=== PATIENT | female | born 1995 | race Hispanic/Latino ===

== ENCOUNTER 2020-09-10 09:49 | Emergency (ER) | payer OTHER, SELFPAY ==
[2020-09-10 10:08] VITALS: BP 118/86; PULSE 80; RESP 14; TEMP 37.2; O2SAT 100; BMI 27.4
--- NOTE | 2020-09-10 10:19 | PC.NURSE ---
Pt . pt started with light pink discharge last night and light brown discharge today with right flank pain. Pt denies urinary sx.
--- NOTE | 2020-09-10 10:33 | DI.US.S_ITS ---
PROCEDURE: US OB <= 14 WEEKS FETUS INDICATIONS: BLEEDING OUTSIDE/PRIOR DATING DATA: Last menstrual period (LMP): 08/07/2020 . LMP-based estimated date of delivery (PERICO): 05/10/2021 . First dating scan (date and location): , 09/10/2020 . Estimated date of delivery (PERICO) from first dating scan: 05/10/2021 . TECHNIQUE: Real-time scanning was performed of the fetuses and maternal pelvic organs, with image documentation. Endovaginal scanning: Performed for better visualization of the fetuses and maternal adnexal structures. COMPARISON: None. FINDINGS: General: There is either a septate or bicornuate uterus present. Within the right cornu, there are 2 separate gestational sacs with trophoblastic reaction. pole and heart rates are not currently visualized. Suggestion of yolk sacs are noted each gestational sac. No evidence of perigestational bleed. Embryo A: Mean sac diameter measures 7 mm corresponds with a 5 day 5 week 3 day gestation. Embryo B: Mean sac diameter measures 5 mm corresponding with a 5 week 2 day gestation. Measurement variability in dating: +/- 4 weeks by LMP, +/- 7 days by mean sac diameter (use before 6 weeks gestation if crown-rump length unable to be measured), +/- 5 days by crown-rump length (up to 8 weeks 6 days gestation), +/- 7 days by crown-rump length (up to 13 weeks 6 days gestation). Maternal organs: Small amount of free fluid in the pelvis. Neither ovary visualized. No adnexal mass. IMPRESSION: Early twin gestation. Mean sac diameter corresponds with a 5 week 3 day and 5 week 2 day gestation. pole or cardiac motion not visualized. Consider short-term interval follow-up to assess appropriate development. No perigestational bleed noted. Bicornuate or septate uterus. Dictated by: Migel Buchanan M.D. on 09/10/2020 at 11:56 Approved by: Migel Buchanan M.D. on 09/10/2020 at 12:07
[2020-09-10 10:56] LABS: Add Manual Diff / Slide Review NO; Basophils Absolute Auto 0 /uL (0-100); Basophils Percent Auto 0.3 % (0-2); Eosinophils Absolute Auto 200 /uL (0-450); Eosinophils Percent Auto 2.5 % (2-4); Hemoglobin 12.9 g/dL (12.0-16.0); Lymphocytes Absolute Auto 2500 /uL (1100-4500); Lymphocytes Percent Auto 37.9 % (25-40); Mean Corpuscular HGB Conc 33.9 % (30-36); Mean Corpuscular Volume 85.7 fL (80-100); Monocytes Absolute Auto 400 /uL (0-900); Monocytes Percent Auto 6.7 % (3-14); Neutrophils Absolute Auto 3400 /uL (1500-7000); Neutrophils Percent Auto 52.6 % (50-75); Platelet Count 229 X10^3/uL (150-400); Red Blood Cell Count 4.43 X10^6/uL (4.0-5.2); Red Cell Distribution Width 14.2 % (11.6-14.8); White Blood Cell Count 6.5 X10^3/uL (4.5-11.0)
[2020-09-10 11:06] LABS: Alanine Aminotransferase 23 IU/L (<35); Albumin 4.1 g/dL (3.5-5.0); Albumin Globulin Ratio 1.5 (1.0-2.8); Alkaline Phosphatase 44 U/L (38-126); Aspartate Aminotransferase 24 IU/L (14-36); Bilirubin Total 0.3 mg/dL (0.2-1.3); Blood Urea Nitrogen 9 mg/dL (7-17); Calcium 9.3 mg/dL (8.4-10.2); Carbon Dioxide 22 mmol/L (22-32); Chloride 108 mmol/L (98-107); Estimated Glomerular Filt Rate > 60.0 mL/min (>60); Globulin 2.8 g/dL (1.7-4.1); Glucose 79 mg/dL (70-100); HEMOLYSIS < 15 (0-50); Potassium 3.8 mmol/L (3.4-5.1); Sodium 137 mmol/L (137-145); Total Protein 6.9 g/dL (6.3-8.2)
[2020-09-10 11:23] LABS: HCG Quantitative /Beta subunit 6488.4 mIU/mL
--- NOTE | 2020-09-10 12:00 | ED.FEMALEGU ---
HPI - Female Genitourinary General Chief complaint: Abdominal Pain Stated complaint: , back and pelvic pain, spotting Time Seen by Provider: 09/10/20 10:33 Source: patient Mode of arrival: Ambulatory Limitations: no limitations History of Present Illness HPI Narrative: Patient is a 25-year-old female who presents with right-sided flank pain and some light pink when wiping. She is currently with her 1st and wanted with her . She denies any real abdominal pain nausea or vomiting. No fevers or chills. She denies any painful or frequent urination. Last menstrual period was 08/07/2020 Related Data Allergies Allergy/AdvReac Type Severity Reaction Status Date / Time No Known Drug Allergies Allergy Verified 09/10/20 10:13 Review of Systems Review of Systems ROS Unobtainable: All systems reviewed & are unremarkable except as noted in HPI and below Constitutional Constitutional: Denies chills, Denies fever(s), Denies lethargy and Denies weakness ENT Ears, Nose, Mouth, and Throat: Denies change in voice, Denies neck pain and Denies sore throat Cardiovascular Cardiovascular: Denies chest pain, Denies syncope, Denies irregular heart rhythm, Denies lightheadedness, Denies palpitations, Denies dyspnea, Denies dyspnea on exertion and Denies orthopnea Respiratory Respiratory: Denies cough, Denies dyspnea, Denies dyspnea on exertion and Denies wheezing Gastrointestinal Gastrointestinal: Reports as per HPI, Reports abdominal pain, Denies nausea and Denies vomiting Genitourinary Genitourinary: Reports as per HPI, Denies urinary hesitancy and Denies urinary urgency Genitourinary: Reports as per HPI, Denies urinary hesitancy and Denies urinary urgency Musculoskeletal Musculoskeletal: Denies myalgias and Denies neck pain Integumentary/Breasts Skin/Breast: Denies pruritus, Denies erythema, Denies rash and Denies wounds Neurologic Neurologic: Denies syncope and Denies weakness Endocrine Endocrine: Denies palpitations Allergic/Immunologic Allergic/Immunologic: Denies wheezing Patient History alcohol intake frequency: holidays/special occasions only Substance Use Type: does not use Exam Initial Vital Signs Initial Vital Signs: Vital Signs Temperature 98.9 F 09/10/20 10:08 Pulse Rate 80 09/10/20 10:08 Respiratory Rate 14 09/10/20 10:08 Blood Pressure 118/86 09/10/20 10:08 Pulse Oximetry 100 09/10/20 10:08 GENERAL: Well-appearing, well-nourished and in no acute distress. HEENT: Head atraumatic,EOMI, pupils reactive, face symmetric, moist mucous membranes CARDIOVASCULAR: Regular rate and rhythm without murmurs, rubs or gallops. RESPIRATORY: Breath sounds equal bilaterally, no wheezes rales or rhonchi. ABDOMEN: Soft, no right lower quadrant pain, negative Guthrie sign no guarding or rebound : No CVA tenderness EXTREMITIES: Normal range of motion, no clubbing or edema. Neurovascularly intact NEUROLOGICAL: Alert and oriented x4.Normal gait and speech. SKIN: Warm, dry, no laceration, no petechiae, no rashes or lesions. Course Orders Ordered: ED Orders 09/10/20 10:33 US OB <= 14 weeks fetus Stat 09/10/20 10:53 ABO RH Type Stat Complete Blood Count AUTO DIFF Stat Comprehensive Metabolic Panel Stat HCG Quantitative /Beta subunit Stat Vital Signs Vital signs: Vital Signs - 8 hr 09/10/20 13:46 Pulse Rate 81 Respiratory Rate 16 Blood Pressure 120/80 Pulse Oximetry 99 MDM - Female Genitourinary Lab Data Attestation: I reviewed the patient's lab results. Result diagrams: 09/10/20 10:53 09/10/20 10:53 Labs: Lab Results 09/10/20 09/10/20 09/10/20 Range/Units 10:53 10:53 10:53 WBC 6.5 (4.5-11.0) X10^3/uL RBC 4.43 (4.0-5.2) X10^6/uL Hgb 12.9 (12.0-16.0) g/dL Hct 38.0 (36-46) % MCV 85.7 (80-100) fL MCH 29.0 (26-34) PG MCHC 33.9 (30-36) % RDW 14.2 (11.6-14.8) % Plt Count 229 (150-400) X10^3/uL Neut % (Auto) 52.6 (50-75) % Lymph % (Auto) 37.9 (25-40) % [place] % (Auto) 6.7 (3-14) % Eos % (Auto) 2.5 (2-4) % Baso % (Auto) 0.3 (0-2) % Neut # (Auto) 3400 (2051-9758) /uL Lymph # (Auto) 2500 (4146-3676) /uL [place] # (Auto) 400 (0-900) /uL Eos # (Auto) 200 (0-450) /uL Baso # (Auto) 0 (0-100) /uL Sodium 137 (137-145) mmol/L Potassium 3.8 (3.4-5.1) mmol/L Chloride 108 H (98-107) mmol/L Carbon Dioxide 22 (22-32) mmol/L BUN 9 (7-17) mg/dL Creatinine 0.53 (0.52-1.04) mg/dL Estimated GFR > 60.0 (>60) mL/min BUN/Creatinine Ratio 17.0 (6-22) Glucose 79 (70-100) mg/dL Calcium 9.3 (8.4-10.2) mg/dL Total Bilirubin 0.3 (0.2-1.3) mg/dL AST 24 (14-36) IU/L ALT 23 (<35) IU/L Alkaline Phosphatase 44 (38-126) U/L Total Protein 6.9 (6.3-8.2) g/dL Albumin 4.1 (3.5-5.0) g/dL Globulin 2.8 (1.7-4.1) g/dL Albumin/Globulin Ratio 1.5 (1.0-2.8) HCG, Quant 6488.4 mIU/mL Blood Type O Positive Point of Care Testing Test Results Positive Urine Dip Bedside Urine Glucose Negative Bedside Urine Bilirubin - Negative Bedside Urine Ketone - Negative Urine Specific [place] 1.015 Bedside Urine Occult Blood - Negative Bedside Urine pH 6.0 Bedside Urine Protein - Negative Bedside Urine Urobilinogen - Negative Bedside Urine Nitrite - Negative Bedside Urine Leukocytes - Negative Esterase Imaging Data US - OB: Radiologist's Impression: PROCEDURE: US OB <= 14 WEEKS FETUS INDICATIONS: BLEEDING OUTSIDE/PRIOR DATING DATA: Last menstrual period (LMP): 08/07/2020 . LMP-based estimated date of delivery (PERICO): 05/10/2021 . First dating scan (date and location): , 09/10/2020 . Estimated date of delivery (PERICO) from first dating scan: 05/10/2021 . TECHNIQUE: Real-time scanning was performed of the fetuses and maternal pelvic organs, with image documentation. Endovaginal scanning: Performed for better visualization of the fetuses and maternal adnexal structures. COMPARISON: None. FINDINGS: General: There is either a septate or bicornuate uterus present. Within the right cornu, there are 2 separate gestational sacs with trophoblastic reaction. pole and heart rates are not currently visualized. Suggestion of yolk sacs are noted each gestational sac. No evidence of perigestational bleed. Embryo A: Mean sac diameter measures 7 mm corresponds with a 5 day 5 week 3 day gestation. Embryo B: Mean sac diameter measures 5 mm corresponding with a 5 week 2 day gestation. Measurement variability in dating: +/- 4 weeks by LMP, +/- 7 days by mean sac diameter (use before 6 weeks gestation if crown-rump length unable to be measured), +/- 5 days by crown-rump length (up to 8 weeks 6 days gestation), +/- 7 days by crown-rump length (up to 13 weeks 6 days gestation). Maternal organs: Small amount of free fluid in the pelvis. Neither ovary visualized. No adnexal mass. IMPRESSION: Early twin gestation. Mean sac diameter corresponds with a 5 week 3 day and 5 week 2 day gestation. pole or cardiac motion not visualized. Consider short-term interval follow-up to assess appropriate development. No perigestational bleed noted. Bicornuate or septate uterus. Dictated by: Migel Buchanan M.D. on 09/10/2020 at 11:56 MDM Narrative Medical decision making narrative: Patient only had 1 episode of brown spotting and then some light pink when she urinated. She has had no further episodes of bleeding or hematuria. Blood work is overall reassuring elevated hCG. 1330 Dr. Kaur updated patient's symptoms test results and will follow-up as outpatient Discharge Plan Departure Patient Disposition: Home Clinical Impression: Twin gestation in first trimester Instructions: DI for -- Discomforts and Remedies Activity Restrictions/Additional Instructions: *You have been diagnosed with twin congratulations *What to do: You were found to have twins. I have called and spoken with custom marine canvas fabricator they will reach out to you for follow-up *Continue to take medications as directed vitamin once daily *Follow up with your primary care provider in 2-3 days It does [facility] *Return to ER if you should have increasing pain vaginal bleeding or any new, worsening or concerning symptoms Referrals: Mckinney,MD Pamela [Physician] - Juliane Garner MD [Physician] - Francheska Kaur MD [Physician] -
[2020-09-10 13:46] VITALS: BP 120/80; PULSE 81; RESP 16; O2SAT 99
== END 2020-09-10 13:46 | disposition home or self-care (01) ==
PROVIDERS: Emergency Provider Emergency Medicine
DX: O20.9 Hemorrhage in early pregnancy, unspecified (principal); Z3A.01 Less than 8 weeks gestation of pregnancy
CPT/HCPCS: 36415; 76801; 76802; 76817; 80053; 81003; 81025; 84702; 85025; 86900; 86901; 99284

== ENCOUNTER → 2020-09-16 12:52 | Outpatient (CLI) | payer OTHER, SELFPAY ==
[2020-09-16 14:21] LABS: HCG Quantitative /Beta subunit 30889 mIU/mL
== END ==
PROVIDERS: Referring Provider Obstetrics & Gynecology; Visit Provider Obstetrics & Gynecology
DX: O26.859 Spotting complicating pregnancy, unspecified trimester (principal)
CPT/HCPCS: 36415; 84702

== ENCOUNTER 2020-09-18 13:47 | Emergency (ER) | payer OTHER, SELFPAY ==
[2020-09-18] VITALS (10 sets, daily range): BP systolic 95–116; BP diastolic 57–72; PULSE 68–77; RESP 12–14; TEMP 36.1; O2SAT 100; BMI 27.4
--- NOTE | 2020-09-18 14:01 | DI.US.S_ITS ---
PROCEDURE: OB <= 14 WEEKS FETUS INDICATIONS: bleeding 6 wks twins OUTSIDE/PRIOR DATING DATA: Last menstrual period (LMP): 08/07/20 . LMP-based estimated date of delivery (PERICO): 05/10/21 . First dating scan (date and location): 09/10/20 Estimated date of delivery (PERICO) from first dating scan: 05/10/21 . TECHNIQUE: Real-time scanning was performed of the fetuses and maternal pelvic organs, with image documentation. Endovaginal scanning: Performed for better visualization of the fetuses and maternal adnexal structures. COMPARISON: [facility], OB <= 14 WEEKS FETUS, 09/10/2020, 11:07. FINDINGS: General: An intrauterine diamniotic mono a chorionic twin is present, as evidenced by single placental site and intervening membrane thickness of greater than 2 mm at this early gestational age. Embryo A: Appears viable, 4 mm crown-rump length Heart rate: 109 Embryo B: Appears viable., 4 mm crown-rump length also. Heart rate: 108 Measurement variability in dating: +/- 4 weeks by LMP, +/- 7 days by mean sac diameter (use before 6 weeks gestation if crown-rump length unable to be measured), +/- 5 days by crown-rump length (up to 8 weeks 6 days gestation), +/- 7 days by crown-rump length (up to 13 weeks 6 days gestation). Maternal organs: Ovaries normal considering gestational status.. IMPRESSION: Twin intrauterine gestation, early 1st trimester, monochorionic diamniotic gestation. Current estimated gestational age is 6 weeks 4 days, based on crown-rump length, with delivery date projected for both gestations to be centered on 05/10/21, +/-5 days. Dictated by: Sonu Garcia M.D. on 09/18/2020 at 15:44 Approved by: Sonu Garcia M.D. on 09/18/2020 at 15:51
[2020-09-18 14:22] LABS: Add Manual Diff / Slide Review NO; Basophils Absolute Auto 0 /uL (0-100); Basophils Percent Auto 0.4 % (0-2); Eosinophils Absolute Auto 100 /uL (0-450); Eosinophils Percent Auto 1.6 % (2-4); Hematocrit 39.8 % (36-46); Hemoglobin 13.2 g/dL (12.0-16.0); Lymphocytes Absolute Auto 2100 /uL (1100-4500); Lymphocytes Percent Auto 31.6 % (25-40); Mean Corpuscular HGB Conc 33.2 % (30-36); Mean Corpuscular Hemoglobin 29.1 PG (26-34); Mean Corpuscular Volume 87.4 fL (80-100); Monocytes Absolute Auto 400 /uL (0-900); Monocytes Percent Auto 6.7 % (3-14); Neutrophils Absolute Auto 4000 /uL (1500-7000); Neutrophils Percent Auto 59.7 % (50-75); Platelet Count 242 X10^3/uL (150-400); Red Blood Cell Count 4.56 X10^6/uL (4.0-5.2); Red Cell Distribution Width 14.5 % (11.6-14.8); White Blood Cell Count 6.7 X10^3/uL (4.5-11.0)
[2020-09-18 15:22] LABS: HCG Quantitative /Beta subunit 48399 mIU/mL
--- NOTE | 2020-09-18 18:31 | ED.PREGNANCY ---
HPI - General Chief complaint: OB/Uterine Contractions Stated complaint: 6 weeks preg, bleeding Time Seen by Provider: 09/18/20 18:06 Source: patient Mode of arrival: Ambulatory History of Present Illness HPI Narrative: Patient is here for vaginal bleeding. Six weeks . Seen here September 10 for the same. Ultrasound and blood work done at that time. Gave referral to local OBGYN. Has appointment in 2 weeks for 1st appointment. Is on vitamins. Bleeding started again today heavier than last visit. No dizziness no syncope no palpitations. No pelvic pain. No vaginal pain. No back pain. Patient denies any medical problems. Blood work and ultrasound today reassuring as it was last visit. Please see report below. Patient set to see Dr. Kaur Related Data Allergies Allergy/AdvReac Type Severity Reaction Status Date / Time No Known Drug Allergies Allergy Verified 09/18/20 13:58 Review of Systems Review of Systems Narrative: GENERAL: Denies chills, fatigue, malaise, fever, sweats. HEENT: Denies sinus pain, ear pain, sore throat RESPIRATORY: Denies dyspnea, cough CARDIOVASCULAR: Denies chest pain, palpitations GASTROINTESTINAL: Denies nausea, vomiting, abdominal pain : Denies dysuria, frequency, hematuria, complains of vaginal bleeding MUSCULOSKELETAL: denies muscle or bony pain SKIN: Denies rash, skin lesions NEUROLOGIC: Denies weakness, numbness ROS Unobtainable: All systems reviewed & are unremarkable except as noted in HPI and below Exam Narrative Exam Narrative: GENERAL: in no distress, not toxic not dyspneic HEAD: Normocephalic. EYES: Pupils equal round No scleral icterus. No injection no discharge ENT: Mucous membranes moist. NECK: Trachea midline. CARDIOVASCULAR: Regular rate and rhythm without murmurs RESPIRATORY: Clear to auscultation. Breath sounds equal bilaterally. No wheezes, rales, or rhonchi. GASTROINTESTINAL: Abdomen soft, non-tender, bowel sounds present, no peritoneal signs. : At this time defer on pelvic exam. Patient has had 2 ultrasounds in the past 2 weeks. Vital signs stable as well as laboratory studies. Denies any pelvic pain. BACK: No flank tenderness. NEURO: AOx4. SKIN: Warm and dry PSYCH: Not anxious, is cooperative Initial Vital Signs Initial Vital Signs: Vital Signs Temperature 97.0 F L 09/18/20 13:55 Pulse Rate 77 09/18/20 13:55 Respiratory Rate 12 09/18/20 13:55 Blood Pressure 107/71 09/18/20 13:55 Pulse Oximetry 100 09/18/20 13:55 Course Course Course Narrative: No new issues during course of stay. Orders Ordered: ED Orders 09/18/20 14:01 US OB <= 14 weeks fetus Stat 09/18/20 14:13 ABO RH Type Stat Complete Blood Count AUTO DIFF Stat HCG Quantitative /Beta subunit Stat Reevaluation(s) Reevaluation #1: Reviewed results with patient and . Informed them discussion with Dr. De Souza and he will have office contact patient tomorrow. They agree with treatment plan and return precautions Time: 19:34 Consultations Consultation #1: Spoke with OBGYN on-call Dr. De Souza, he will inform Dr. Kaur regarding visit here and last week as well and will have office contact patient tomorrow for recheck. Time: 18:45 Vital Signs Vital signs: Vital Signs - 8 hr 09/18/20 18:00 09/18/20 19:43 Pulse Rate 73 70 Respiratory Rate 14 Blood Pressure 116/60 Pulse Oximetry 100 100 MDM - OB/Uterine Contractions Differential Diagnosis Differential diagnosis: Likely other (Threatened miscarriage) Lab Data Result diagrams: 09/18/20 14:13 Labs: Lab Results 09/18/20 09/18/20 09/18/20 Range/Units 14:13 14:13 14:13 WBC 6.7 (4.5-11.0) X10^3/uL RBC 4.56 (4.0-5.2) X10^6/uL Hgb 13.2 (12.0-16.0) g/dL Hct 39.8 (36-46) % MCV 87.4 (80-100) fL MCH 29.1 (26-34) PG MCHC 33.2 (30-36) % RDW 14.5 (11.6-14.8) % Plt Count 242 (150-400) X10^3/uL Neut % (Auto) 59.7 (50-75) % Lymph % (Auto) 31.6 (25-40) % [place] % (Auto) 6.7 (3-14) % Eos % (Auto) 1.6 L (2-4) % Baso % (Auto) 0.4 (0-2) % Neut # (Auto) 4000 (7868-2380) /uL Lymph # (Auto) 2100 (4098-6251) /uL [place] # (Auto) 400 (0-900) /uL Eos # (Auto) 100 (0-450) /uL Baso # (Auto) 0 (0-100) /uL HCG, Quant 86020 mIU/mL Blood Type O Positive Urine Dip Bedside Urine Glucose Negative Bedside Urine Bilirubin - Negative Bedside Urine Ketone - Negative Urine Specific [place] 1.015 Bedside Urine Occult Blood +++ Bedside Urine pH 6.0 Bedside Urine Protein - Negative Bedside Urine Urobilinogen - Negative Bedside Urine Nitrite - Negative Bedside Urine Leukocytes - Negative Esterase Imaging Data US - OB: Radiologist's Impression: [address] [id number] ReportSigned Patient: Patrick Strauss DMR#: [id number]: [id number]:[id number]/Sex: 25 / FDate of Service: 09/18/20Loc: EDAccession Number: [id number] Procedure: US OB <= 14 weeks fetus Ordering Provider: Bettye Geiger D.O. PROCEDURE: US OB <= 14 WEEKS FETUS INDICATIONS: bleeding 6 wks twins OUTSIDE/PRIOR DATING DATA: Last menstrual period (LMP): 08/07/20 . LMP-based estimated date of delivery (PERICO): 05/10/21 . First dating scan (date and location): 09/10/20 Estimated date of delivery (PERICO) from first dating scan: 05/10/21 . TECHNIQUE: Real-time scanning was performed of the fetuses and maternal pelvic organs, with image documentation. Endovaginal scanning: Performed for better visualization of the fetuses and maternal adnexal structures. COMPARISON: [facility], OB <= 14 WEEKS FETUS, 09/10/2020, 11:07. FINDINGS: General: An intrauterine diamniotic mono a chorionic twin is present, as evidenced by single placental site and intervening membrane thickness of greater than 2 mm at this early gestational age. Embryo A: Appears viable, 4 mm crown-rump length Heart rate: 109 Embryo B: Appears viable., 4 mm crown-rump length also. Heart rate: 108 Measurement variability in dating: +/- 4 weeks by LMP, +/- 7 days by mean sac diameter (use before 6 weeks gestation if crown-rump length unable to be measured), +/- 5 days by crown-rump length (up to 8 weeks 6 days gestation), +/- 7 days by crown-rump length (up to 13 weeks 6 days gestation). Maternal organs: Ovaries normal considering gestational status.. IMPRESSION: Twin intrauterine gestation, early 1st trimester, monochorionic diamniotic gestation. Current estimated gestational age is 6 weeks 4 days, based on crown-rump length, with delivery date projected for both gestations to be centered on 05/10/21, +/-5 days. Dictated by: Sonu Garcia M.D. on 09/18/2020 at 15:44 Approved by: Sonu Garcia M.D. on 09/18/2020 at 15:51 MDM Narrative Medical decision making narrative: Appropriate for discharge home. Exam as well as laboratory studies and imaging reassuring. Patient early in . Patient does have follow-up with OBGYN. Quantitative hCG is rising. Heartbeat noted on ultrasound as well. Discharge Plan Departure Patient Disposition: Home Clinical Impression: Miscarriage, threatened, early Instructions: DI for Threatened Activity Restrictions/Additional Instructions: Contact Dr. Kaur office tomorrow regarding your recent visits. Call the office tomorrow. They are expecting your call. Return if worse or if any questions or concerns or increased bleeding or any dizziness or feel like your going to pass out. Continue home medications. No sexual activity. The patient her to get plenty of rest. Referrals: Francheska Kaur MD [Physician] -
== END 2020-09-18 19:45 | disposition home or self-care (01) ==
PROVIDERS: Emergency Medicine; Emergency Provider Emergency Medicine
DX: O20.0 Threatened abortion (principal); Z3A.01 Less than 8 weeks gestation of pregnancy
CPT/HCPCS: 36415; 76801; 76802; 76817; 81003; 84702; 85025; 86900; 86901; 99283; 99284

== ENCOUNTER → 2020-09-25 12:07 | Outpatient (CLI) | payer OTHER, SELFPAY ==
--- NOTE | 2020-09-25 12:09 | DI.US.S_ITS ---
PROCEDURE: OB <= 14 WEEKS FETUS INDICATIONS: FOLLOW-UP BLEEDING OUTSIDE/PRIOR DATING DATA: Last menstrual period (LMP): 08/07/20. LMP-based estimated date of delivery (PERICO): . First dating scan (date and location): 09/10/20 . Estimated date of delivery (PERICO) from first dating scan: 05/10/20 . TECHNIQUE: Real-time scanning was performed of the fetuses and maternal pelvic organs, with image documentation. COMPARISON: [facility] OB <= 14 WEEKS FETUS, 09/18/2020, 14:22. [facility], OB <= 14 WEEKS FETUS, 09/10/2020, 11:07. FINDINGS: General: An intrauterine diamniotic dichorionic twin is present, as evidenced by separate placental sites and intervening membrane thickness of greater than 2 mm at this early gestational age. Embryo A: 7 mm crown-rump length, which correlates with a gestational age of 6 weeks 4 days. Heart rate: 117 Embryo B: 7 mm crown-rump length with a gestational age also of 6 weeks 4 days. Heart rate: Not seen. Measurement variability in dating: +/- 4 weeks by LMP, +/- 7 days by mean sac diameter (use before 6 weeks gestation if crown-rump length unable to be measured), +/- 5 days by crown-rump length (up to 8 weeks 6 days gestation), +/- 7 days by crown-rump length (up to 13 weeks 6 days gestation). Maternal organs: Ovaries normal considering gestational status. The uterus appears bicornuate with the gestational sacs in the right horn. IMPRESSION: Fetus a, gestational sac inferior and medial within the right cornua. cardiac activity is observed. Fetus B, superior and lateral positioning in the right cornua, with no cardiac activity seen currently. cardiac activity was seen 1 week ago. The current imaging suffices for establishing diagnosis of demise of fetus B. However, additional follow-up ultrasound in 5-7 days could be obtained for further confirmation.. Dictated by: Sonu Garcia M.D. on 09/25/2020 at 16:36 Approved by: Sonu Garcia M.D. on 09/25/2020 at 16:45
== END ==
PROVIDERS: PCP Family Medicine; Referring Provider Obstetrics & Gynecology; Visit Provider Obstetrics & Gynecology
DX: O20.9 Hemorrhage in early pregnancy, unspecified (principal); O30.041 Twin pregnancy, dichorionic/diamniotic, first trimester; Z3A.01 Less than 8 weeks gestation of pregnancy
CPT/HCPCS: 76801; 76817

== ENCOUNTER → 2020-10-01 16:10 | Outpatient (CLI) | payer OTHER, SELFPAY ==
[2020-10-01 16:31] LABS: Add Manual Diff / Slide Review NO; Basophils Absolute Auto 0 /uL (0-100); Basophils Percent Auto 0.3 % (0-2); Eosinophils Absolute Auto 100 /uL (0-450); Eosinophils Percent Auto 1.2 % (2-4); Hematocrit 37.8 % (36-46); Hemoglobin 12.8 g/dL (12.0-16.0); Lymphocytes Absolute Auto 2000 /uL (1100-4500); Mean Corpuscular HGB Conc 33.8 % (30-36); Mean Corpuscular Volume 85.8 fL (80-100); Monocytes Absolute Auto 400 /uL (0-900); Neutrophils Absolute Auto 4800 /uL (1500-7000); Neutrophils Percent Auto 65.5 % (50-75); Platelet Count 258 X10^3/uL (150-400); Red Blood Cell Count 4.41 X10^6/uL (4.0-5.2); Red Cell Distribution Width 14.5 % (11.6-14.8); White Blood Cell Count 7.3 X10^3/uL (4.5-11.0)
[2020-10-02 04:54] LABS: Varicella IgG Antibody 450 index (Immune >165)
[2020-10-02 06:08] LABS: RPR Screen Non Reactive (Non Reactive)
[2020-10-02 16:21] LABS: Hepatitis B Surface Antigen NEGATIVE s/c (NEGATIVE); Rubella Antibody IgG 22.1 IU/mL (>15)
[2020-10-02 16:45] LABS: HIV 1 & 2 Ab/Ag 4th Gen Combo NEGATIVE (NEGATIVE); Hep C Virus Ab w/Reflex Quant NEGATIVE s/c (NEGATIVE)
== END ==
PROVIDERS: PCP Family Medicine; Referring Provider Obstetrics & Gynecology; Visit Provider Obstetrics & Gynecology
DX: Z34.01 Encounter for supervision of normal first pregnancy, first trimester (principal)
CPT/HCPCS: 36415; 80055; 86787; 86803; 86850; 86900; 86901; 87389

== ENCOUNTER → 2020-10-18 12:31 | Outpatient (CLI) | payer OTHER, SELFPAY ==
[2020-10-18 13:44] LABS: Appearance Urine UA CLEAR; Bilirubin Urine UA NEGATIVE (NEGATIVE); Color Urine UA YELLOW; Glucose Urine UA NEGATIVE (Negative); Ketones Urine UA NEGATIVE (NEGATIVE); Leukocyte Esterase Urine UA 1+ (NEGATIVE); Nitrite Urine UA NEGATIVE (Negative); Occult Blood Urine UA NEGATIVE (Negative); Protein Urine UA NEGATIVE (Negative); Specific Gravity Urine UA <=1.005 (1.000-1.035); Urobilinogen Urine UA 0.2 E.U./dL (0.2)
[2020-10-18 14:06] LABS: RBC Urine None Seen (0-5/HPF)
[2020-10-18 14:20] LABS: Bacteria Urine Moderate (10-30); Squamous Epithelial Cell Urine 5-10 /HPF (0-5/HPF); WBC Urine 5-10/HPF (0-5/HPF)
== END ==
PROVIDERS: PCP Family Medicine; Referring Provider Obstetrics & Gynecology; Visit Provider Obstetrics & Gynecology
DX: Z34.01 Encounter for supervision of normal first pregnancy, first trimester (principal); Z36.0 Encounter for antenatal screening for chromosomal anomalies
CPT/HCPCS: 36415; 81003; 81015; 87086

== ENCOUNTER → 2021-02-02 10:48 | Outpatient (CLI) | payer OTHER, SELFPAY ==
[2021-02-02 12:31] LABS: Hematocrit 28.9 % (36-46); Hemoglobin 9.9 g/dL (12.0-16.0)
[2021-02-02 12:45] LABS: GTT (PREG) 1 Hour PP 50gm Dose 101 mg/dL (76-139)
== END ==
PROVIDERS: PCP Family Medicine; Referring Provider Obstetrics & Gynecology; Visit Provider Physician Assistant
DX: Z34.02 Encounter for supervision of normal first pregnancy, second trimester (principal); Z3A.25 25 weeks gestation of pregnancy
CPT/HCPCS: 36415; 82950; 85014; 85018

== ENCOUNTER 2021-03-05 14:28 | Observation (INO) | payer OTHER, SELFPAY | END 2021-03-05 16:30 | disposition home or self-care (01) | PROVIDERS: Admitting Provider Obstetrics & Gynecology; PCP Family Medicine; Referring Provider Obstetrics & Gynecology; Visit Provider Obstetrics & Gynecology | DX: O26.893 Other specified pregnancy related conditions, third trimester (principal); R10.9 Unspecified abdominal pain; Z3A.29 29 weeks gestation of pregnancy | CPT/HCPCS: 59025; G0378; G0379 ==

== ENCOUNTER 2021-03-15 18:46 | Observation (INO) | payer OTHER, SELFPAY ==
[2021-03-15 20:10] LABS: Bilirubin Urine UA NEGATIVE (NEGATIVE); Color Urine UA YELLOW; Glucose Urine UA NEGATIVE (Negative); Ketones Urine UA NEGATIVE (NEGATIVE); Leukocyte Esterase Urine UA TRACE (NEGATIVE); Nitrite Urine UA NEGATIVE (Negative); Occult Blood Urine UA 2+ (Negative); Protein Urine UA NEGATIVE (Negative); Specific Gravity Urine UA <=1.005 (1.000-1.035); Urobilinogen Urine UA 0.2 E.U./dL (0.2)
[2021-03-15 20:13] LABS: Appearance Urine UA Slightly Cloudy
[2021-03-15 20:18] LABS: RBC Urine 1-5/HPF (0-5/HPF)
[2021-03-15 20:19] LABS: Amorphous Sediment Urine 1+; Bacteria Urine Moderate (10-30); Culture Indicated Urine Specimen Cultured; Squamous Epithelial Cell Urine 1-5 /HPF (0-5/HPF); WBC Urine 5-10/HPF (0-5/HPF)
--- NOTE | 2021-03-16 08:52 | PM.OBTRLD ---
Visit Information Visit Information Date of evaluation: 03/15/21 Primary OB Provider: Francheska Kaur On-call OB Provider: Juliane Garner Reason for Evaluation: Yes other Comments/Additional reasons for admission: 1 spot of blood on toliet paper, L sided pain, for 2 hours stopped when laid down Vital Signs Vital Signs: BP 114/71, P 85, T 98.8 [facility] Medical History (Updated 03/16/21 @ 09:01 by Juliane Garner MD) GERD (gastroesophageal reflux disease) (~03/2020) Left hand fracture (~2009) Surgical History (Updated 09/26/20 @ 12:26 by Ayala Clark RN) [place] teeth extracted (~2017) Family History (Updated 09/26/20 @ 12:35 by Ayala Clark, ENDY) Mother No problems noted. Father No problems noted. Grandmother Cancer Grandfather No problems noted. Grandmother Arthritis Grandfather Myocardial infarction Social History marital status: household members: spouse lives independently: Yes caregiver/support person: No housing: house pets and animals: Yes (1 dog: still a puppy, Husky/Serbian Diego. ) education level: college (BA in Psychology.) occupational status: employed (Employment Occasional Caregiver.) current occupational exposures/hazards: No elvia/religious: Pentecostalism special elvia needs: No seatbelt use: always working smoke detector in home: Yes fire extinguisher in home: Yes carbon monox detector in home: Yes firearms in home: No do you feel safe at home: Yes Smoking Status: Never smoker second hand exposure: No alcohol intake: never substance use type: does not use during the past year weight has: decreased > 10 lbs well-balanced diet: about half the time (Encouraged online nutrition class. ) daily servings fruits/ve-4 caffeine: No (Quit w : aversion.) Type(s) of exercise: walking frequency: daily duration: 30-45 minutes/day Review of Systems Review of Systems Narrative: No cramping, no fevers, 1 spot of blood on toliet paper, L sided pain. [place] on TP a few days ago, 1 hour of left sided pain yesterday. GFM Objective Labs Labs: Laboratory Results - last 24 hr 03/15/21 19:00 Urine Color Yellow Urine Appearance Slightly cloudy Urine pH 7.0 Ur Specific [place] <=1.005 Urine Protein Negative Urine Glucose (UA) Negative Urine Ketones Negative Urine Occult Blood 2+ H Urine Nitrate Negative Urine Bilirubin Negative Urine Urobilinogen 0.2 Ur Leukocyte Esterase Trace H Urine RBC 1-5/hpf Urine WBC 5-10/hpf H Ur Squamous Epith Cells 1-5 /hpf Amorphous Sediment 1+ Urine Bacteria Moderate (10-30) H Ur Culture Indicated? Specimen cultured Evaluation Evaluation Baseline heart rate: 160 Variability: Moderate (11-25) monitor accelerations: Present Monitor Decelerations: Absent Contraction Frequency (minutes): 0 Category of Tracing: Reactive Status: Category l Diagnosis, Plan/Disposition Final Diagnosis (1) Urinary tract infection affecting care of mother in third trimester, antepartum: Status: Acute (2) 31 weeks gestation of : Status: Acute Plan/Disposition Plan: possible UTI, possible pain from hydronephrosis. Started on macrobid. Rest on right side. Push fluids. Tylenol, heat for pain OB Disposition: home
== END 2021-03-15 21:00 | disposition home or self-care (01) ==
PROVIDERS: Admitting Provider Obstetrics & Gynecology; PCP Family Medicine; Referring Provider Obstetrics & Gynecology; Visit Provider Obstetrics & Gynecology
DX: O23.43 Unspecified infection of urinary tract in pregnancy, third trimester (principal); N39.0 Urinary tract infection, site not specified; Z3A.31 31 weeks gestation of pregnancy
CPT/HCPCS: 59025; 81001; 87086; 87147; G0378; G0379

== ENCOUNTER 2021-03-16 17:24 | Observation (INO) | payer OTHER, SELFPAY ==
--- NOTE | 2021-03-16 18:41 | PM.OBHP.IH.1 ---
OB HPI Date/Time Date of admission: 03/16/21 Date Patient Seen: 03/16/21 Time Patient Seen: 18:30 History of Present Condition Chief complaint: PERICO Calculator Estimated Delivery Date Method Current WG Current Estimate 05/15/21 LMP (Certain) 31w 3d Other Estimates 05/14/21 Ultrasound #1 31w 4d : 1 Para: 0 Narrative: 25-year-old at 31 weeks and 3 days gestation with premature rupture of membranes. She was seen in the center yesterday due to one episode of bleeding with wiping and left-sided pain. Left-sided pain felt to be round ligament pain however there was concern for UTI and she was prescribed Macrobid. Urine culture is pending. Today she has had some red and brown discharge with wiping but no kady bleeding. Baby has been active. She picked up her antibiotics this afternoon. She was advised to come to the center when she called the clinic today because of ongoing bleeding/discharge. As she was getting out of her car at the hospital, she had a gush of fluid that soaked her underwear. On exam she was grossly ruptured with light meconium-stained fluid. 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 Genetic evaluation was negative, normal karyotype, microarray and negative Hardeep-Wiedemann testing. Was initially a twin however there was a demise of twin B at 7 weeks. The plan had been to delivery via at due to the size of the omphalocele and need for surgery for baby after . 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 Baby has been breech on US. Last EFW 3 lbs 6 oz, 40th percentile. Since arriving in the center she has felt mild tightening but denies pain. She continues to leak fluid. care: good care, initiated at week # (7), number of visits (7) and pounds weight gain (24) Dating criteria OB: LMP confirmed by 1st trimester US Ultrasounds: other (Omphalocele, clubfoot followed by Maternal Medicine as above) Medical complications OB: none Preadmission Labs Last OB Lab Results: Blood Type O Positive 10/01/20 16:15 10/01/20 Antibody Screen Negative 10/01/20 16:15 10/01/20 Hematocrit 28.9 % (36-46) L 02/02/21 12:02 02/02/21 Hemoglobin 9.9 g/dL (12.0-16.0) L 02/02/21 12:02 02/02/21 Hepatitis B Surface Antigen Negative s/c (NEGATIVE) 10/01/20 16:15 10/01/20 Hepatitis C Antibody Negative s/c (NEGATIVE) 10/01/20 16:15 10/01/20 Rubella Antibody 22.1 IU/mL (>15) 10/01/20 16:15 10/01/20 Varicella-Zoster IgG Antibody 450 index (Immune >165) 10/01/20 16:15 10/01/20 Glucose 1 Hour 101 mg/dL (76-139) 02/02/21 12:02 02/02/21 -: Chlamydia screen: negative, Gonorrhea screen: negative and Urine: negative -: PAP smear: Normal External Labs -: Urine: negative Evaluation Evaluation Baseline heart rate: 150 Variability: Moderate (11-25) monitor accelerations: Present Monitor Decelerations: Absent Status: Category l Effacement (%): 80 Dilation: 1-2 cm station: -3 Position of cervix: posterior [facility] Medical History GERD (gastroesophageal reflux disease) (~03/2020) Left hand fracture (~2009) Surgical History [place] teeth extracted (~2017) Family History Mother No problems noted. Father No problems noted. Grandmother Cancer Grandfather No problems noted. Grandmother Arthritis Grandfather Myocardial infarction Social History marital status: household members: spouse lives independently: Yes caregiver/support person: No housing: house pets and animals: Yes (1 dog: still a puppy, Husky/Azeri Diego. ) education level: college (BA in Psychology.) occupational status: employed (Employment Java Enterprise Architect.) current occupational exposures/hazards: No elvia/alevism: Oriental Orthodox special elvia needs: No seatbelt use: always working smoke detector in home: Yes fire extinguisher in home: Yes carbon monox detector in home: Yes firearms in home: No do you feel safe at home: Yes Smoking Status: Never smoker second hand exposure: No alcohol intake: never substance use type: does not use during the past year weight has: decreased > 10 lbs well-balanced diet: about half the time (Encouraged online nutrition class. ) daily servings fruits/ve-4 caffeine: No (Quit w : aversion.) Type(s) of exercise: walking frequency: daily duration: 30-45 minutes/day Meds Home Medications and Allergies Home Medications Medication Instructions Recorded Confirmed Type prenat.vits,mac,pcd-[id number] 1 tab PO DAILY 09/26/20 03/11/21 History terbinafine HCl 250 mg tablet 250 mg PO DAILY 09/26/20 03/11/21 History nitrofurantoin macrocrystal 100 mg 100 mg PO Q12H #14 cap 03/16/21 Rx capsule (Macrodantin) Allergies Allergy/AdvReac Type Severity Reaction Status Date / Time No Known Drug Allergies Allergy Verified 03/11/21 11:50 Review of Systems Review of Systems ROS: Yes All systems reviewed with the patient and are negative except as otherwise documented OB Exam Narrative Exam Narrative: Temperature 97.9 blood pressure 113/69 heart rate 94 HENMT Head: normal to inspection Eyes General: appearance normal, both eyes and all related structures Cardio Rate: regular rate Estimated Weight (lbs): 3 Other: Grossly ruptured on exam. When speculum was placed in vagina there was a moderate amount light meconium-stained fluid. Assessment and Plan Assessment and Plan Assessment and Plan narrative: 25-year-old at 31 weeks and 3 days gestation with premature rupture of membranes at approximately 5:20 p.m. today with lightly meconium-stained fluid. 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 Due to the omphalocele, the plan had been for delivery via at the [facility] with transfer of the infant to [facility] for surgery after stabilization. 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 has been breech on ultrasound. Last estimated weight on 03/11/21 was 3 lb 6 oz, 40th percentile. SVE 180/-3 posterior. She reports mild contractions since rupture of membranes however not picking up well on the monitor. Case discussed with Dr. Paty Shirley who accepts the patient for transfer to the [facility] for NICU capabilities. Will give betamethasone, ampicillin, azithromycin and magnesium sulfate. GBS swab is pending. COVID negative. [facility] is unfortunately unavailable due to the weather so transport will be via ambulance. Will give one dose of terbutaline prior to transport given mild contractions.
[2021-03-16] MEDS: LACTATED RINGERS 1,000 ML 150 ML IV (19:03)
[2021-03-16] MEDS: AMPICILLIN 2,000 MG in SODIUM CHLORIDE 0.9% 100 ML 200 ML IV (19:04)
[2021-03-16] MEDS: BETAMETHASONE 30 MG/5 ML MDV 12 MG IM (19:04)
[2021-03-16 19:05] LABS: Add Manual Diff / Slide Review NO; Basophils Absolute Auto 0 /uL (0-100); Basophils Percent Auto 0.2 % (0-2); Eosinophils Absolute Auto 100 /uL (0-450); Eosinophils Percent Auto 0.6 % (2-4); Hemoglobin 10.7 g/dL (12.0-16.0); Lymphocytes Absolute Auto 2100 /uL (1100-4500); Lymphocytes Percent Auto 19.3 % (25-40); Mean Corpuscular HGB Conc 33.4 % (30-36); Mean Corpuscular Hemoglobin 27.6 PG (26-34); Mean Corpuscular Volume 82.6 fL (80-100); Monocytes Absolute Auto 500 /uL (0-900); Monocytes Percent Auto 4.6 % (3-14); Neutrophils Absolute Auto 8200 /uL (1500-7000); Neutrophils Percent Auto 75.3 % (50-75); Platelet Count 255 X10^3/uL (150-400); Red Blood Cell Count 3.88 X10^6/uL (4.0-5.2); Red Cell Distribution Width 15.1 % (11.6-14.8)
[2021-03-16 19:06] VITALS: BP 113/69
[2021-03-16 19:10] LABS: COVID19 -Nasal RAPID Negative (Negative)
[2021-03-16] MEDS: MAGNESIUM SULFATE 4 GM/100 ML PIGGYBACK IV (19:24)
[2021-03-16] MEDS: MAGNESIUM SULFATE 20 GM/500 ML IV.SOLN IV (19:40)
[2021-03-16] MEDS: AZITHROMYCIN 1,000 MG in DEXTROSE 5% IN WATER 250 ML IV (19:50)
[2021-03-16 22:37] LABS: Strep Grp B PCR NEG for Grp B Strep
== END 2021-03-16 21:40 | disposition home or self-care (01) ==
PROVIDERS: Admitting Provider Family Medicine; PCP Family Medicine; Referring Provider Family Medicine; Visit Provider Family Medicine
DX: O42.913 Preterm premature rupture of membranes, unspecified as to length of time between rupture and onset of labor, third trimester (principal); Z3A.31 31 weeks gestation of pregnancy; O77.0 Labor and delivery complicated by meconium in amniotic fluid; O35.8XX0 Maternal care for other (suspected) fetal abnormality and damage, not applicable or unspecified; O99.891 Other specified diseases and conditions complicating pregnancy; Q51.9 Congenital malformation of uterus and cervix, unspecified; K21.9 Gastro-esophageal reflux disease without esophagitis; Z20.822 Contact with and (suspected) exposure to COVID-19
CPT/HCPCS: 36415; 59025; 59050; 85025; 86850; 86900; 86901; 87210; 87635; 87653; 96360; 96372; C9803; G0378; G0379; J0290; J0702; J3475

== ENCOUNTER → 2021-09-24 16:43 | Outpatient (CLI) | payer OTHER, SELFPAY ==
[2021-09-24 17:53] LABS: Add Manual Diff / Slide Review NO; Basophils Absolute Auto 0 /uL (0-100); Basophils Percent Auto 0.3 % (0-2); Eosinophils Absolute Auto 100 /uL (0-450); Hemoglobin 10.5 g/dL (12.0-16.0); Lymphocytes Absolute Auto 2000 /uL (1100-4500); Lymphocytes Percent Auto 29.9 % (25-40); Mean Corpuscular HGB Conc 32.6 % (30-36); Mean Corpuscular Hemoglobin 24.1 PG (26-34); Mean Corpuscular Volume 73.7 fL (80-100); Monocytes Absolute Auto 400 /uL (0-900); Neutrophils Absolute Auto 4200 /uL (1500-7000); Neutrophils Percent Auto 61.8 % (50-75); Platelet Count 283 X10^3/uL (150-400); Red Blood Cell Count 4.34 X10^6/uL (4.0-5.2); Red Cell Distribution Width 19.4 % (11.6-14.8); White Blood Cell Count 6.8 X10^3/uL (4.5-11.0)
[2021-09-25 05:42] LABS: RPR Screen Non Reactive (Non Reactive)
[2021-09-25 08:52] LABS: Varicella IgG Antibody 390 index (Immune >165)
[2021-09-29 17:05] LABS: Hepatitis B Surface Antigen NEGATIVE s/c (NEGATIVE); Rubella Antibody IgG 18.2 IU/mL (>15)
[2021-09-29 17:15] LABS: HIV 1 & 2 Ab/Ag 4th Gen Combo NEGATIVE (NEGATIVE); Hep C Virus Ab w/Reflex Quant NEGATIVE s/c (NEGATIVE)
== END ==
PROVIDERS: PCP Family Medicine; Referring Provider Obstetrics & Gynecology; Visit Provider Obstetrics & Gynecology
DX: Z34.81 Encounter for supervision of other normal pregnancy, first trimester (principal)
CPT/HCPCS: 36415; 80055; 86787; 86803; 86850; 86900; 86901; 87389

== ENCOUNTER → 2021-11-17 16:56 | Outpatient (CLI) | payer OTHER, SELFPAY ==
[2021-11-17 18:32] LABS: Appearance Urine UA CLEAR; Bilirubin Urine UA NEGATIVE (NEGATIVE); Color Urine UA YELLOW; Glucose Urine UA NEGATIVE (Negative); Ketones Urine UA NEGATIVE (NEGATIVE); Leukocyte Esterase Urine UA 1+ (NEGATIVE); Nitrite Urine UA NEGATIVE (Negative); Occult Blood Urine UA NEGATIVE (Negative); Protein Urine UA NEGATIVE (Negative); Urobilinogen Urine UA 0.2 E.U./dL (0.2)
[2021-11-17 18:47] LABS: pH Urine UA 6.5 (4.5-8.0)
[2021-11-17 20:52] LABS: RBC Urine 0-1/HPF (0-5/HPF)
[2021-11-17 20:53] LABS: Bacteria Urine Many (>30); Calcium Oxalate Crystals Urine Occasional; Squamous Epithelial Cell Urine 5-10 /HPF (0-5/HPF); WBC Urine 1-5/HPF (0-5/HPF)
== END ==
PROVIDERS: PCP Family Medicine; Visit Provider Obstetrics & Gynecology
DX: Z34.81 Encounter for supervision of other normal pregnancy, first trimester (principal)
CPT/HCPCS: 81003; 81015; 87086

== ENCOUNTER → 2021-11-17 17:14 | Outpatient (CLI) | payer OTHER, SELFPAY ==
[2021-11-20 21:10] LABS: AFP Value 40.3 ng/mL (.); Gest Age on Col Date 17.7 weeks (.); Insulin Dep Diabetes No (.); OSBR Risk 1IN 10000 (.); Results Report (.); Test Results *Screen Negative* (.)
== END ==
PROVIDERS: PCP Family Medicine; Referring Provider Obstetrics & Gynecology; Visit Provider Obstetrics & Gynecology
DX: Z34.82 Encounter for supervision of other normal pregnancy, second trimester (principal); Z3A.17 17 weeks gestation of pregnancy
CPT/HCPCS: 36415; 81003; 81015; 82105; 87086

== ENCOUNTER → 2021-12-03 11:05 | Outpatient (CLI) | payer OTHER, SELFPAY ==
--- NOTE | 2021-12-03 11:05 | DI.US.S_ITS ---
PROCEDURE: US OB >= 14 WEEKS FETUS INDICATIONS: anatomy scan OUTSIDE/PRIOR DATING DATA: Last menstrual period (LMP): 07/16/2021. LMP-based estimated date of delivery (PERICO): 04/22/2022. First dating scan (date and location): 09/24/2021. Estimated date of delivery (PERICO) from first dating scan: 04/22/2022. The calculations are made using the ultrasound PERICO of 04/22/2022. TECHNIQUE: Real-time scanning was performed of the fetus, with image documentation and biometric measurements. Endovaginal scanning: Not performed COMPARISON: [facility], US, US OB >= 14 WEEKS FETUS, 10/21/2021, 15:16. FINDINGS: General: A single living intrauterine gestation is present. Presentation: Vertex. Placenta: Placental position is fundal , without previa. Amniotic fluid index: 11.8 cm, normal range is 5-24 cm. Single deepest vertical pocket is 3.6 cm. heart rate: 160 beats per minute. Maternal cervical canal: 3.7 cm long. Normal lower limit is 2.5 cm. biometrics: Biparietal diameter: 4.99 cm, 21 weeks 0 days Head circumference: 18.21 cm, 20 weeks 4 days Abdominal circumference: 14.72 cm, 20 weeks 0 days Femur length: 3.21 cm, 20 weeks 0 days Clinically estimated gestational age: 20 weeks 0 days Composite gestational age from present scan: 20 weeks 3 days Estimated weight and percentile: 332 g, 51st percentile Anatomic survey: Neuro: Ventricles are non-dilated at less than 10 mm. Cisterna magna is normal at 3-11 mm. Cerebellum is normal in size and morphology. Nuchal skin fold: Normal at less than 6 mm between 14-21 weeks gestational age. Face: Nose and lips are within normal limits. Unable to obtain good profile. Spine: Suboptimally evaluated Heart: Four-chamber view and left ventricular outflow tract well evaluated. Right ventricular outflow tract not well seen. Diaphragm: Diaphragm is intact. Stomach: Left-sided stomach is present. Kidneys: Bilateral pelviectasis. Normal is less than 5 mm in 2nd trimester, less than 7 mm in 3rd trimester. Cord: 3-vessel cord has orthotopic insertion. Bladder: Normal in size. Extremities: All 4 extremities identified. IMPRESSION: 1. Living 2nd trimester intrauterine . Current ultrasound age is 3 days greater than clinical age based on initial ultrasound. 2. Suboptimal evaluation of profile, spine, and right ventricular outflow tract. Additionally, there is bilateral pelviectasis. Comment: Recommend that the patient return for further evaluation of these above structures to complete the 2nd trimester anatomy scan. We strive to produce accurate, complete, and clear reports of imaging services. To assist us in improving patient care, this report was composed using standard report templates and voice recognition software. Therefore, it may contain abnormal punctuation, insertions and/or omissions. Occasional wrong-word or sound-alike substitutions may occur. Though we review the report and make efforts to correct it, we do recommend that the report be read carefully in proper context to recognize any text inaccuracies. Dictated by: Arash Corcoran M.D. on 12/03/2021 at 15:07 Approved by: Arash Corcoran M.D. on 12/03/2021 at 15:22
== END ==
PROVIDERS: PCP Family Medicine; Referring Provider Obstetrics & Gynecology; Visit Provider Obstetrics & Gynecology
DX: Z34.82 Encounter for supervision of other normal pregnancy, second trimester (principal); Z3A.20 20 weeks gestation of pregnancy
CPT/HCPCS: 76811

== ENCOUNTER → 2022-01-12 15:00 | Outpatient (CLI) | payer OTHER, SELFPAY ==
[2022-01-12 20:20] LABS: Urine N gonorrhoeae NOT DETECTED
[2022-01-12 20:24] LABS: Urine Chlamydia NOT DETECTED
== END ==
PROVIDERS: PCP Family Medicine; Visit Provider Obstetrics & Gynecology
DX: Z34.82 Encounter for supervision of other normal pregnancy, second trimester (principal); Z3A.25 25 weeks gestation of pregnancy
CPT/HCPCS: 87491; 87591

== ENCOUNTER → 2022-01-26 13:05 | Outpatient (CLI) | payer OTHER, SELFPAY ==
[2022-01-26 16:45] LABS: Hematocrit 25.8 % (36-46); Hemoglobin 8.4 g/dL (12.0-16.0)
[2022-01-26 17:15] LABS: GTT (PREG) 1 Hour PP 50gm Dose 116 mg/dL (76-139)
== END ==
PROVIDERS: PCP Family Medicine; Referring Provider Obstetrics & Gynecology; Visit Provider Obstetrics & Gynecology
DX: Z34.82 Encounter for supervision of other normal pregnancy, second trimester (principal); Z3A.27 27 weeks gestation of pregnancy
CPT/HCPCS: 36415; 82950; 85014; 85018

== ENCOUNTER → 2022-04-01 14:56 | Outpatient (CLI) | payer OTHER, SELFPAY ==
[2022-04-02 17:28] LABS: Strep Grp B PCR NEG for Grp B Strep
== END ==
PROVIDERS: PCP Family Medicine; Visit Provider Obstetrics & Gynecology
DX: Z34.83 Encounter for supervision of other normal pregnancy, third trimester (principal); Z3A.37 37 weeks gestation of pregnancy
CPT/HCPCS: 87653